=== PATIENT | female | born 1950 | race Caucasian/White ===

== ENCOUNTER 2019-04-29 14:54 | Outpatient (CLI) | payer MEDICARE ==
[~2019-04-29 14:54] MED LIST: VITA1TAB PO
[2019-04-29] MEDS ORDERED: ASCO-96 PO (15:38)
[2019-04-29] MEDS ORDERED: CALC-451 PO (15:38)
== END 2019-04-29 23:59 | disposition home or self-care (01) ==
LOC: STAR 14:54
PROVIDERS: ATTEND Surgery
DX: Z01.818 Encounter for other preprocedural examination (principal)
CPT/HCPCS: 93005

== ENCOUNTER 2019-05-03 07:27 | Day surgery (SDC) | payer MEDICARE ==
[2019-04-29 15:39] VITALS: BP 135/79
[~2019-05-03] VITALS: Ht 160 cm; Wt 62.7 kg
[~2019-05-03 07:27] MED LIST changes: +ASCO-96 PO; +BUPIVACAINE/PF 0.5% ONE; +CALC-451 PO; +ISOSULFAN BLUE 10 MG/ML, 5ML IV ONE
[2019-05-03] MEDS ORDERED: LIDOCAINE 1%, 10ML ONE (07:52)
[2019-05-03] MEDS ORDERED: LACTATED RINGERS 1,000 ML IV SCH (08:14)
[2019-05-03 08:27] VITALS: BP 135/79
[2019-05-03] MEDS ORDERED: LIDOCAINE-MPF 1%, 2ML INFIL ONE (08:30)
[2019-05-03] MEDS ORDERED: ACETAMINOPHEN 500 MG TABLET PO ONE (08:30)
[2019-05-03] MEDS ORDERED: CEFAZOLIN 1,000 MG ONE ×2 (09:47)
[2019-05-03] MEDS ORDERED: ONDANSETRON 2MG/ML, 2ML ONE (09:47)
[2019-05-03] MEDS ORDERED: PROPOFOL 10 MG/ML, 20ML ONE (09:47)
[2019-05-03] MEDS ORDERED: DEXAMETHASONE 4 MG/ML, 1ML ONE ×2 (09:47)
[2019-05-03] MEDS ORDERED: FENTANYL PF 100 MCG/2ML ONE (09:47)
[2019-05-03] MEDS ORDERED: MIDAZOLAM 1 MG/ML, 2ML ONE (09:47)
[2019-05-03] MEDS ORDERED: FENTANYL PF 100 MCG/2ML IV PRN (10:30)
[2019-05-03] MEDS ORDERED: LORazepam 2 MG/ML, 1ML IVPush PRN (10:30)
[2019-05-03] MEDS ORDERED: HYDROmorphone 2 MG/ML, 1ML IVPush PRN (10:30)
[2019-05-03] MEDS ORDERED: ONDANSETRON 2MG/ML, 2ML IV PRN (10:30)
[2019-05-03] MEDS ORDERED: METOCLOPRAMIDE 5 MG/ML, 2ML IV PRN (10:30)
[2019-05-03] MEDS ORDERED: MEPERIDINE/PF 25MG/ML,1ML IVPush PRN (10:30)
[2019-05-03] MEDS ORDERED: OXYcodone 5 MG/5 ML ORAL.SOL UDC PO PRN (10:30)
[2019-05-03] MEDS ORDERED: EPINEPHRINE 1 MG/ML, 1ML INFIL ONE (10:48)
== END 2019-05-03 13:15 | disposition home or self-care (01) ==
LOC: OUT 07:27 → EDSTATUS 10:30 → OUT 13:15
PROVIDERS: ATTEND Surgery
DX: C50.411 Malignant neoplasm of upper-outer quadrant of right female breast (principal); N60.11 Diffuse cystic mastopathy of right breast; R59.1 Generalized enlarged lymph nodes; Z87.39 Personal history of other diseases of the musculoskeletal system and connective tissue; Z90.710 Acquired absence of both cervix and uterus; Z98.890 Other specified postprocedural states
CPT/HCPCS: 19301; 38525; 38792; 76098; 88307; 88341; 88342; A9541; J0171; J0690; J1100; J2250; J2405; J2704; J3010; J7120

== ENCOUNTER 2019-06-04 09:35 | Outpatient (CLI) | payer MEDICARE ==
[~2019-06-04 09:35] MED LIST changes: -BUPIVACAINE/PF 0.5% ONE; -ISOSULFAN BLUE 10 MG/ML, 5ML IV ONE
== END 2019-06-04 23:59 | disposition home or self-care (01) ==
LOC: ROC 09:35
PROVIDERS: ATTEND Radiology Radiation Oncology
DX: C50.911 Malignant neoplasm of unspecified site of right female breast (principal)
CPT/HCPCS: 99214; G0463